=== PATIENT | female | born 2000 | race Caucasian/White ===

== ENCOUNTER 2024-05-20 17:48 | Emergency (ER) | payer SELFPAY ==
[2024-05-20 18:43] VITALS: TEMP 97.8
[2024-05-20] MEDS: ONDANSETRON HCL INJ 2MG/ML 2ML 2 MG/ML VIAL IV STA (19:12)
[2024-05-20 19:15] LABS: CLARITY,URINE CLOUDY (CLEAR); COLOR,URINE YELLOW (YELLOW); LEUKOCYTE ESTERASE ,URINE NEGATIVE (NEGATIVE); NITRITE,URINE NEGATIVE (NEGATIVE); PH,URINE 7 (5 - 7)
[2024-05-20 19:16] LABS: BILIRUBIN,URINE SMALL (NEGATIVE); GLUCOSE, URINE NEGATIVE (NEGATIVE); KETONES,URINE TRACE (NEGATIVE); PREGNANCY TEST, URINE NEGATIVE (NEGATIVE); PROTEIN,URINE DIPSTICK 2+ (NEGATIVE); URINE UROBILINOGEN 2 mg/dL (0.2 - 1)
[2024-05-20 19:33] LABS: BACTERIA,URINE MODERATE /HPF; CALCIUM OXALATE CRYSTALS,UR MODERATE (FEW); EPITHELIAL CELLS,URINE FEW /LPF; RBC,URINE 21-50 /HPF (0-5)
[2024-05-20] MEDS: KETOROLAC TROMETHAMINE 30 MG/ML VIAL IV STA (20:28)
[2024-05-20 20:30] LABS: BASOPHILS % 0.2 % (0.0-1.0); EOSINOPHILS % 0.2 % (0.0-6.0); HEMATOCRIT 42.2 % (34.2-44.1); HEMOGLOBIN 12.6 g/dL (12.0-16.0); LYMPHOCYTES # (AUTO) 0.7 (1.0-3.2); LYMPHOCYTES % 8.6 % (18.0-39.1); MEAN CORPUSCULAR HGB CONC 29.9 g/dL (31-35); MEAN CORPUSCULAR VOLUME 90.4 fL (81-99); MONOCYTES # (AUTO) 0.3 (0.2-0.8); MONOCYTES % 3.8 % (4.4-11.3); NEUTROPHILS # (AUTO) 7.3 (2.1-6.9); PLATELET COUNT 229 x10e3/uL (140-360); RED BLOOD COUNT 4.67 x10e6/uL (3.6-5.1); RED CELL DISTRIBUTION WIDTH 13.5 % (11.7-14.4); WHITE BLOOD COUNT 8.44 x10e3/uL (4.8-10.8)
[2024-05-20 20:53] LABS: ANION GAP 15.8 mmol/L (8-16); CALCIUM 9.2 mg/dL (8.4-10.2); CREATININE, SERUM 0.88 mg/dL (0.57-1.11); POTASSIUM 3.8 mmol/L (3.5-5.1)
[2024-05-20 21:00] VITALS: PULSE 99; RESP 17
[2024-05-20] MEDS ORDERED: KETOROLAC TROME10 MG PO (21:50)
[2024-05-20] MEDS ORDERED: FLOMAX0.4 MG PO (21:50)
[2024-05-20] MEDS ORDERED: ONDANSETRON ODT4 MG SL (21:50)
[2024-05-20] MEDS ORDERED: CEFDINIR300 MG PO (21:50)
[2024-05-20 22:12] VITALS: BP 148/84; PULSE 90; RESP 16; TEMP 97.9; O2SAT 98
== END 2024-05-20 22:08 | disposition home or self-care (01) ==
LOC: ER 18:46
DX: M54.50 Low back pain, unspecified (principal); N13.2 Hydronephrosis with renal and ureteral calculous obstruction; R10.9 Unspecified abdominal pain; R11.2 Nausea with vomiting, unspecified
CPT/HCPCS: 36415; 74176; 80048; 81001; 81025; 85025; 99284; J1885; J2405